=== PATIENT | male | born 1975 | race Caucasian/White ===

== ENCOUNTER 2016-11-27 22:42 | Emergency (ER) | payer OTHER ==
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
[2016-11-27 23:10] VITALS: BP 125/68; PULSE 100; TEMP 98.2; BMI 27.4
== END 2016-11-27 23:16 ==
LOC: JER 22:42
DX: Z04.1 Encounter for examination and observation following transport accident (principal); F11.20 Opioid dependence, uncomplicated; F10.10 Alcohol abuse, uncomplicated; V43.52XA Car driver injured in collision with other type car in traffic accident, initial encounter; Y93.C2 Activity, hand held interactive electronic device; Y92.414 Local residential or business street as the place of occurrence of the external cause; Y93.89 Activity, other specified; Y99.8 Other external cause status
CPT/HCPCS: 99282-25

== ENCOUNTER 2019-10-20 18:09 | Inpatient (IN) | payer OTHER ==
[2019-10-20 19:16] VITALS: BMI 26.7
--- NOTE | 2019-10-20 21:20 | HP ---
COWS - Scale Resting Pulse: 1= AL 81-100 Sweatin=Flushed/Facial Moisture Restless Observation: 5= Unable to Sit Still Pupil Size: 0= Normal to Room Light Bone or Joint Aches: 4=Acute Joint/Muscle Pain Runny Nose/ Eye Tearin= Nasal Congestion GI Upset > 30mins: 2= Nausea/Diarrhea Tremor Observation: 0= None Yawning Observation: 1= 1-2x During Session Anxiety or Irritability: 2=Irritable/Anxious Goose Flesh Skin: 0=Smooth Skin COWS Score: 18 CIWA Score Nausea/Vomitin Muscle Tremors: None Anxiety: 4-Mod. Anxious/Guarded Agitation: 4-Moderately Restless Paroxysmal Sweats: 3 Orientation: 2-Disoriented Date<2 days Tacttile Disturbances: 0-None Auditory Disturbances: 0-None Visual Disturbances: 0-None Headache: 0-None Present CIWA-Ar Total Score: 15 - Admission Criteria [facility] Guidelines: Admission for Medically Managed Detox: Requires at least one of the followin. CIWA greater than 12 2. Seizures within the past 24 hours 3. Delirium tremens within the past 24 hours 4. Hallucinations within the past 24 hours 5. Acute intervention needed for co occurring medical disorder 6. Acute intervention needed for co occurring psychiatric disorder 7. Severe withdrawal that cannot be handled at a lower level of care (continued vomiting, continued diarrhea, abnormal vital signs) requiring intravenous medication and/or fluids 8. Admitting History and Physical - Smoking History Smoking history: Current every day smoker Aproximately how many cigarettes per day: 20 - Alcohol/Substance Use Hx Alcohol Use: No Admission ROS [facility] Chief Complaint: C/O WITHDRAWAL SX'S Allergies/Adverse Reactions: Allergies Allergy/AdvReac Type Severity Reaction Status Date / Time No Known Allergies Allergy Verified 10/20/19 19:09 History of Present Illness: HERE FOR ALCOHOL , XANAX, HEROIN DETOX. CLIENT IS REFERRED BY [facility]. PRESENT WITH C/O WITHDRAWAL SX'S. REPORT DAILY USE OF ALL 3 SUBSTANCES. LAST USE EARLIER TODAY. + [employer] SPECIALIST. + HX/O DRUG OVERDOSE, IVDU, BLACKOUTS, DENIES SEIZURE D/O, AVH, SI/HI. REPORTS 8 YEARS CLEAN RELAPSING 4 YEARS AGO. LIVES WITH FAMILY, EMPLOYED, DENIES LEGALS. Exam Limitations: No Limitations - Ebola screening Have you traveled outside of the country in the last 21 days: No (N) Have you had contact with anyone from an Ebola affected area: No Have you been sick,other than usual withdrawal symptoms: No Do you have a fever: No - Review of Systems Constitutional: Chills, Loss of Appetite, Malaise, Night Sweats, Changes in sleep EENT: reports: No Symptoms Reported Respiratory: reports: No Symptoms reported Cardiac: reports: No Symptoms Reported GI: reports: Diarrhea, Nausea, Poor Appetite, Poor Fluid Intake : reports: No Symptoms Reported Musculoskeletal: reports: Back Pain Integumentary: reports: Sweating Neuro: reports: No Symptoms reported Endocrine: reports: No Symptoms Reported Hematology: reports: No Symptoms Reported Psychiatric: reports: Agitated (IRRITABLE), Anxious Other Systems: Reviewed and Negative Patient History - Patient Medical History Hx Anemia: No Hx Asthma: Yes (CHILDHOOD) Hx Chronic Obstructive Pulmonary Disease (COPD): No Hx Cancer: No Hx Cardiac Disorders: No Hx Congestive Heart Failure: No Hx Hypertension: No Hx Hypercholesterolemia: No Hx Pacemaker: No HX Cerebrovascular Accident: No Hx Seizures: No Hx Dementia: No Hx Diabetes: No Hx Gastrointestinal Disorders: No Hx Liver Disease: No Hx Genitourinary Disorders: No Hx Sexually Transmitted Disorders: No Hx Renal Disease (ESRD): No Hx Thyroid Disease: No Hx Human Immunodeficiency Virus (HIV): No Hx Hepatitis C: No Hx Depression: No Hx Suicide Attempt: No Hx Bipolar Disorder: No Hx Schizophrenia: No Other Medical History: ANXIETY - Patient Surgical History Past Surgical History: No - PPD History Documented Results: Negative w/o proof Implanted On Prior [facility] Admission?: No PPD to be Administered?: Yes - Smoking Cessation Smoking history: Current every day smoker Aproximately how many cigarettes per day: 10 Cigars Per Day: 0 Hx Chewing Tobacco Use: No Initiated information on smoking cessation: Yes 'Breaking Loose' booklet given: 10/20/19 - Substance & Tx. History Hx Alcohol Use: Yes Hx Substance Use: Yes Substance Use Type: Alcohol, Heroin, Tranquilizers (XANAX) Hx Substance Use Treatment: Yes ([facility]) - Substances abused Heroin Substance route: Injection Frequency: Daily Amount used: 20 bags Age of first use: 21 Date of last use: 10/20/19 (20 BAGS) Alprazolam (Xanax) Substance route: Oral Frequency: Daily Amount used: 6 (2mg) bars Age of first use: 40 Date of last use: 10/20/19 Alcohol Substance route: Oral Frequency: Daily Amount used: 2 pints of vodka Age of first use: 18 Date of last use: 10/20/19 (1 PINT) Admission Physical Exam [facility] - Vital Signs Vital Signs: Vital Signs - 24 hr 10/20/19 19:11 Temperature 97.9 F Pulse Rate 87 Respiratory 16 Rate Blood Pressure 97/60 - Physical General Appearance: Yes: Moderate Distress, Irritable, Sweating, Anxious HEENTM: Yes: EOMI, Normocephalic, Normal Voice, LISE, Pharynx Normal, Nasal Congestion Respiratory: Yes: Chest Non-Tender, Lungs Clear, Normal Breath Sounds, No Respiratory Distress, No Accessory Muscle Use Neck: Yes: No masses,lesions,Nodules, Supple, Trachea in good position Breast: Yes: Breasts Symetrical Cardiology: Yes: Regular Rhythm, Regular Rate, S1, S2 Abdominal: Yes: Normal Bowel Sounds, Non Tender, Soft Genitourinary: Yes: Within Normal Limits Back: Yes: Normal Inspection Musculoskeletal: Yes: full range of Motion, Gait Steady Extremities: Yes: Normal Capillary Refill, Normal Range of Motion, Non-Tender Neurological: Yes: Fully Oriented, Alert, Motor Strength 5/5 Integumentary: Yes: Dry, Warm, Track Od[place], Other (FLUSHED) Lymphatic: Yes: Within Normal Limits - Diagnostic (1) Alcohol dependence with withdrawal, uncomplicated Current Visit: Yes Status: Acute (2) Sedative, hypnotic or anxiolytic dependence with withdrawal, uncomplicated Current Visit: Yes Status: Acute (3) Opioid dependence with withdrawal Current Visit: Yes Status: Acute (4) Substance induced mood disorder Current Visit: Yes Status: Suspected (5) IVDU (intravenous drug user) Current Visit: Yes Status: Acute (6) At risk for dehydration due to poor fluid intake Current Visit: Yes Status: Acute (7) Track odell due to intravenous drug abuse Current Visit: Yes Status: Acute Cleared for Admission [facility] - Detox or Rehab [facility] Level of Care: Medically Managed Detox Regimen/Protocol: Methadone/Valium Claeared for Rehab Admission: No Breathalyzer - Breathalyzer Breathalyzer: 0 Urine Drug Screen - Test Device Lot number: [id number] Expiration date: 04/26/21 - Control Is test valid?: Yes - Results Drug screen NEGATIVE: No Urine drug screen results: FEN-Fentanyl, MTD-Methadone, BZO-Benzodiazepines, BUP -Suboxone Inpatient Rehab Admission - Rehab Decision to Admit Inpatient rehab admission?: No
[2019-10-20] MEDS ORDERED: IBUPROFEN 400 MG TABLET (FP) PO PRN (21:28)
[2019-10-20] MEDS ORDERED: ACETAMINOPHEN 325 MG TABLET (FP) PO PRN ×2 (21:28)
[2019-10-20] MEDS ORDERED: MAG HYDROX/AL HYDROX/SIMETH 30 ML UNIT-DOSE CUP PO PRN (21:28)
[2019-10-20] MEDS ORDERED: DICYCLOMINE HCL 10 MG CAPSULE PO PRN (21:28)
[2019-10-20] MEDS ORDERED: hydrOXYzine PAMOATE 25 MG CAPSULE (FP) PO PRN (21:28)
[2019-10-20] MEDS ORDERED: cloNIDine HCL 0.1 MG TABLET PO PRN (21:28)
[2019-10-20] MEDS ORDERED: ONDANSETRON *ODT* 4 MG TABLET SL PRN (21:28)
[2019-10-20] MEDS ORDERED: MAGNESIUM CITRATE 300 ML BOTTLE PO PRN (21:28)
[2019-10-20] MEDS ORDERED: MENTHOL/PHENOL 1 EACH UD MM PRN (21:28)
[2019-10-20] MEDS ORDERED: NICOTINE POLACRILEX 2 MG GUM BUC PRN (21:28)
[2019-10-20] MEDS ORDERED: BISMUTH SUBSALICYLATE 524 MG/30 ML UD PO PRN (21:28)
[2019-10-20] MEDS ORDERED: P-EPHED 60MG/TRIPROLIDI 2.5MG TABLET PO PRN (21:28)
[2019-10-20] MEDS ORDERED: MAGNESIUM HYDROX 2400MG/30ML ORAL SUSPENSION 30 ML CUP PO PRN (21:28)
[2019-10-20] MEDS ORDERED: guaiFENesin 200 MG/10 ML 10 ML UNIT-DOSE CUPS PO PRN (21:28)
[2019-10-20] MEDS ORDERED: NALOXONE HCL 0.4 MG/ML VIAL IM PRN (21:28)
[2019-10-20] MEDS ORDERED: MELATONIN 5 MG TABLETS PO PRN (21:28)
[2019-10-20] MEDS ORDERED: METHOCARBAMOL 500 MG TABLET PO PRN (21:28)
[2019-10-20] MEDS ORDERED: METHADONE HCL 10 MG TABLET (FOR DETOX USE ONLY) PO ONE (22:15)
[2019-10-20] MEDS: THIAMINE HCL 100 MG TABLET (FP) PO SCH (22:44)
[2019-10-20] MEDS: diazePAM 5 MG TABLET PO SCH (22:48)
[2019-10-21] MEDS: diazePAM 5 MG TABLET PO SCH ×3 (07:22→22:07)
[2019-10-21] MEDS ORDERED: METHADONE HCL 10 MG TABLET (FOR DETOX USE ONLY) ONE (08:50)
[2019-10-21] MEDS ORDERED: METHADONE HCL 5 MG TABLET (FOR DETOX USE ONLY) ONE (08:51)
[2019-10-21] MEDS ORDERED: METHADONE (DETOX) 20 MG, METHADONE (DETOX) 5 MG PO ONE (10:00)
[2019-10-21] MEDS: PRENATAL VITAMINS W/ FOLIC ACID TABLET (FP) PO SCH (10:31)
[2019-10-21] MEDS: diazePAM 5 MG TABLET PO PRN ×2 (10:32→16:40)
[2019-10-21] MEDS: NICOTINE 14 MG/24 HOURS TOPICAL PATCH TD SCH (10:34)
--- NOTE | 2019-10-21 10:37 | EKG ---
Test Reason : Blood Pressure : / mmHG Vent. Rate : 072 BPM Atrial Rate : 072 BPM P-R Int : 140 ms QRS Dur : 098 ms QT Int : 374 ms P-R-T Axes : 049 -27 046 degrees QTc Int : 409 ms NORMAL SINUS RHYTHM NORMAL ECG NO PREVIOUS ECGS AVAILABLE Confirmed by DANYA AMBROCIO MD ([id number]) on 10/21/2019 10:36:40 AM Referred By: Charlie Wright Confirmed By:DANYA AMBROCIO MD
--- NOTE | 2019-10-21 11:44 | PN ---
S CIWA - CIWA Score Nausea/Vomitin-No Nausea/No Vomiting Muscle Tremors: 2 Anxiety: 3 Agitation: 2 Paroxysmal Sweats: 3 Orientation: 0-Oriented Tacttile Disturbances: 0-None Auditory Disturbances: 0-None Visual Disturbances: 0-None Headache: 2-Mild CIWA-Ar Total Score: 12 BHS COWS - Scale Resting Pulse: 0= IN 80 or Below Sweatin= Beads of Sweat on Face Restless Observation: 1= Difficult to Sit Still Pupil Size: 0= Normal to Room Light Bone or Joint Aches: 2= Severe Diffuse Aches Runny Nose/ Eye Tearin= None GI Upset > 30mins: 0= None Tremor Observation of Outstretched Hands: 2= Slight Tremor Visible Yawning Observation: 1= 1-2x During Session Anxiety or Irritability: 2=Irritable/Anxious Goose Flesh Skin: 0=Smooth Skin COWS Score: 11 BHS Progress Note (SOAP) Subjective: c/o shakes, headache, muscle aches, anxiety, and sweats. Objective: 10/21/19 11:50 Vital Signs 10/21/19 10/21/19 10/21/19 06:23 06:30 09:12 Temperature 97 F L 97.0 F L Pulse Rate 71 67 Respiratory 18 18 18 Rate Blood Pressure 107/67 97/59 L Labs not done yet. Pt refused lab work this morning. Pt is instructed to allow the customer solutions supervisor to draw blood. Pt requested for the lab work to be done at a later time. Explain to the pt the importance of getting the blood work done. Pt verbalized understanding. Instructed the customer solutions supervisor to come back later for the blood draw. 10/21/19 11:53 10/21/19 11:55 Assessment: 10/21/19 11:54 AOX3, in no acute respiratory distress. Full ROM, ambulating in the unit. Withdrawal symptoms. Plan: continue detox. Increase fluids.
--- NOTE | 2019-10-21 15:41 | CONSULT ---
[facility] Psychiatric Consult - Data Date of interview: 10/21/19 Admission source: [facility] Identifying data: First visit at [facility] and admission to [address] [place] [address] for this 44 y/o male referred, from [facility], for detoxification treatment. [facility] issues : heroin, benzodiazepine (xanax), nicotine, alcohol, nicotine. Patient is single, no dependents, domiciled and currently employed. Substance Abuse History: Discussed with the patient. Details in current [facility] report as follows : Smoking history: Current every day smoker. Aproximately how many cigarettes per day: 10. Cigars Per Day: 0. Hx Chewing Tobacco Use: No. Initiated information on smoking cessation: Yes. 'Breaking Loose' booklet given: 10/20/19. - Substance & Tx. History. Hx Alcohol Use: Yes. Hx Substance Use: Yes. Substance Use Type: Alcohol, Heroin, Tranquilizers (XANAX) . Hx Substance Use Treatment: Yes ([facility]). - Substances abused. Heroin. Substance route: Injection. Frequency: Daily. Amount used: 20 bags. Age of first use: 21. Date of last use: 10/20/19 (20 BAGS). Alprazolam ( Xanax). Substance route: Oral. Frequency: Daily. Amount used: 6 (2mg) bars. Age of first use: 40. Date of last use: 10/20/19. Alcohol. Substance route : Oral. Frequency: Daily. Amount used: 2 pints of vodka. Age of first use: 18. Date of last use: 10/20/19 (1 PINT) Medical History: Remarkable for chronic lumbar pain and bronchial asthma. Psychiatric History: Patient denies history of psychiatric hospitalizations, OPD care or sucide attempts.Mr Ellsworth reports that he has been prescribed trazodone in the past (while a patient at a [facility] program) for insomnia. Physical/Sexual Abuse/Trauma History: Patient denies. Additional Comment: Urine drug screen results: FEN-Fentanyl, MTD-Methadone, BZO- Benzodiazepines, BUP-Suboxone. Noted. Mental Status Exam - Mental Status Exam Alert and Oriented to: Time, Place, Person Cognitive Function: Good Patient Appearance: Unkempt, Disheveled Mood: Nervous, Withdrawn Affect: Appropriate, Normal Range Patient Behavior: Fatigued, Appropriate, Cooperative Speech Pattern: Clear Voice Loudness: Normal Thought Process: Intact, Goal Oriented Thought Disorder: Not Present Hallucinations: Denies Suicidal Ideation: Denies Homicidal Ideation: Denies Insight/Judgement: Poor Sleep: Poorly, Difficulty falling asleep Appetite: Good Gait/Station: Normal Psychiatric Findings - Problem List ([place] 1, 2,3) (1) Alcohol dependence with withdrawal, uncomplicated Current Visit: Yes Status: Acute (2) Opioid dependence with withdrawal Current Visit: Yes Status: Acute (3) Sedative, hypnotic or anxiolytic dependence with withdrawal, uncomplicated Current Visit: Yes Status: Acute (4) Substance induced mood disorder Current Visit: Yes Status: Chronic (5) Insomnia Current Visit: Yes Status: Acute - Initial Treatment Plan Initial Treatment Plan: Psychoeducation. Sleep hygiene. Detoxification. MAT services discussed with the patient. AA/NA meetings. Trazodone 100 mg po hs. Ordered at patient's request. Side effects/benefits discussed. Mr Ellsworth is informed of risk of priapism and advised to alert MD/RN if occurrence of abnormal erectile events (painful or prolonged erection). No prior adverse issues with trazodone. Patient gave consent (verbal) to MD. Observation.
[2019-10-21] MEDS ORDERED: traZODone HCL 100 MG TABLET (FP) PO SCH (22:00)
[2019-10-21] MEDS: THIAMINE HCL 100 MG TABLET (FP) PO SCH (22:08)
[2019-10-22] MEDS ORDERED: diazePAM 5 MG TABLET PO SCH (06:00)
[2019-10-22 06:55] LABS: PH,URINE 7.5 (5.0-8.0); URINE APPEARANCE Clear; URINE BILIRUBIN Negative (NEGATIVE); URINE COLOR Yellow; URINE GLUCOSE (UA) Negative (NEGATIVE); URINE KETONE Negative (NEGATIVE); URINE LEUK ESTERASE Negative (NEGATIVE); URINE NITRITE Negative (NEGATIVE); URINE PROTEIN 1+ (NEGATIVE); URINE UROBILINOGEN 0.2 mg/dL (0.2-1.0)
[2019-10-22] MEDS: diazePAM 5 MG TABLET PO PRN (08:48)
[2019-10-22 09:38] VITALS: BP 100/56; PULSE 61; TEMP 96.4
[2019-10-22] MEDS ORDERED: METHADONE HCL 10 MG TABLET (FOR DETOX USE ONLY) PO ONE (10:00)
[2019-10-22] MEDS: NICOTINE 14 MG/24 HOURS TOPICAL PATCH TD SCH (10:12)
[2019-10-22] MEDS: PRENATAL VITAMINS W/ FOLIC ACID TABLET (FP) PO SCH (10:12)
--- NOTE | 2019-10-22 11:38 | DS ---
[facility] Detox Discharge Summary Admission Date: 10/20/19 Discharge Date: 10/22/19 - History Present History: Alcohol Dependence, Opioid Dependence, Sedative Dependence Additional Comments: 44 years old male admitted on 10/20/19 for alcohol benzo opiate withdrawal sx management treated with valim and methadone detox regimen encourage the patient to explore medication assisted treatment program and order picker narcan from pharmacy Pertinent Past History: patient insists to leave the detox unit patient is alert oriented x 3 speech clearly coherently ambulating steady gait case discussed with the nurse against medical advice is appropriated - Physical Exam Results Vital Signs: Vital Signs Temperature 96.4 F L 10/22/19 09:37 Pulse Rate 61 10/22/19 09:37 Respiratory Rate 18 10/22/19 09:37 Blood Pressure 100/56 L 10/22/19 09:37 O2 Sat by Pulse Oximetry (%) Pertinent Admission Physical Exam Findings: alcohol benzo opiate withdrawal Laboratory Last Values Urine Color Yellow 10/21/19 10:45 Urine Appearance Clear 10/21/19 10:45 Urine pH 7.5 (5.0-8.0) 10/21/19 10:45 Ur Specific [place] 1.020 (1.010-1.035) 10/21/19 10:45 Urine Protein 1+ (NEGATIVE) H 10/21/19 10:45 Urine Glucose (UA) Negative (NEGATIVE) 10/21/19 10:45 Urine Ketones Negative (NEGATIVE) 10/21/19 10:45 Urine Blood Negative (NEGATIVE) 10/21/19 10:45 Urine Nitrite Negative (NEGATIVE) 10/21/19 10:45 Urine Bilirubin Negative (NEGATIVE) 10/21/19 10:45 Urine Urobilinogen 0.2 mg/dL (0.2-1.0) 10/21/19 10:45 Ur Leukocyte Esterase Negative (NEGATIVE) 10/21/19 10:45 lab noted - Treatment Hospital Course: Detox Protocol Followed Patient has Accepted a Rehab Referral to: community support approach - Medication Discharge Medications: Ambulatory Orders traZODone HCL [Trazodone HCl] 100 mg PO HS 10/20/19 Naloxone HCl [Narcan] 4 mg NS ASDIR PRN #1 spray 10/22/19 - Diagnosis (1) Alcohol dependence with withdrawal, uncomplicated Status: Acute (2) Opioid dependence with withdrawal Status: Acute (3) Sedative, hypnotic or anxiolytic dependence with withdrawal, uncomplicated Status: Acute (4) Substance induced mood disorder Status: Suspected - AMA Did Patient Leave Against Medical Advice: Yes
[2019-10-23] MEDS ORDERED: diazePAM 5 MG TABLET PO ONE (06:00)
[2019-10-23] MEDS ORDERED: METHADONE (DETOX) 10 MG, METHADONE (DETOX) 5 MG PO ONE (10:00)
[2019-10-24] MEDS ORDERED: METHADONE HCL 10 MG TABLET (FOR DETOX USE ONLY) PO ONE (10:00)
[2019-10-25] MEDS ORDERED: METHADONE HCL 5 MG TABLET (FOR DETOX USE ONLY) PO ONE (06:00)
== END 2019-10-22 11:20 | disposition left against medical advice (07) | DRG 770 ==
LOC: YASAS 18:09 → Y3N 22:01
PROVIDERS: ADMIT Allergy & Immunology; ATTEND Allergy & Immunology
PROC: HZ2ZZZZ Detoxification Services for Substance Abuse Treatment (ICD-10-PCS; principal; 2019-10-20)
DX: F11.23 Opioid dependence with withdrawal (principal); F10.230 Alcohol dependence with withdrawal, uncomplicated; F13.230 Sedative, hypnotic or anxiolytic dependence with withdrawal, uncomplicated; F17.210 Nicotine dependence, cigarettes, uncomplicated; F19.24 Other psychoactive substance dependence with psychoactive substance-induced mood disorder; G47.00 Insomnia, unspecified; R63.8 Other symptoms and signs concerning food and fluid intake; L90.5 Scar conditions and fibrosis of skin
CPT/HCPCS: 81003; 93005; 93010